=== PATIENT | female | born 1965 | race Caucasian/White ===

== ENCOUNTER 2022-05-02 04:12 | Day surgery (SDC) | payer BC ==
[2022-04-28 10:12] VITALS: BMI 28.8
[2022-05-02 07:23] VITALS: RESP 18
[2022-05-02] MEDS ORDERED: KETAMINE HCL 500 MG/10 ML VIAL ONE (09:11)
[2022-05-02] MEDS ORDERED: MIDAZOLAM HCL 2 MG/2 ML SINGLE DOSE VIAL ONE (09:11)
[2022-05-02] MEDS ORDERED: PROPOFOL 60 ML ONE (09:33)
[2022-05-02] MEDS ORDERED: ROCURONIUM BROMIDE 50 MG/5 ML SYRINGE ONE (09:35)
[2022-05-02] MEDS ORDERED: oxyCODONE HCL 5 MG TABLET PO PRN (09:57)
[2022-05-02] MEDS ORDERED: IBUPROFEN 800 MG/8 ML IJ IVPB PRN (09:57)
[2022-05-02] MEDS ORDERED: IBUPROFEN 600 MG TABLET (FP) PO PRN (09:57)
[2022-05-02] MEDS ORDERED: ONDANSETRON 4 MG/2 ML VIAL IVPUSH PRN ×2 (09:57→10:48)
[2022-05-02] MEDS ORDERED: ELECTROLYTE-148 SOLN 1,000 ML IV SCH (10:00)
[2022-05-02] MEDS ORDERED: LACTATED RINGERS SOLUTION 1,000 ML IV SCH (11:00)
[2022-05-02 12:31] VITALS: BP 133/82; PULSE 72; TEMP 97.9
== END 2022-05-02 12:30 | disposition home or self-care (01) ==
LOC: JASU-SURG 04:12
PROVIDERS: ATTEND Obstetrics & Gynecology
PROC: 0UBC8ZZ Excision of Cervix, Via Natural or Artificial Opening Endoscopic (ICD-10-PCS; principal; 2022-05-02 08:30)
DX: N95.0 Postmenopausal bleeding (principal); N84.1 Polyp of cervix uteri; N85.8 Other specified noninflammatory disorders of uterus
CPT/HCPCS: 81025; 88305-TC; 94760